=== PATIENT | male | born 1980 | race Caucasian/White ===

== ENCOUNTER 2018-12-18 04:03 | Emergency (ER) | payer MEDICAID ==
[~2018-12-18] VITALS: Ht 193 cm; Wt 95.3 kg
--- NOTE | 2018-12-18 04:15 | NUR ---
ED Nurse Note: Patient walked in to ER c/o left ankle pain, AAO x4, VSS at this time.
[2018-12-18] MEDS ORDERED: IBUPROFEN600 MG ORAL (04:37)
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
[2018-12-18 04:40] VITALS: BP 129/69
--- NOTE | 2018-12-18 04:47 | NUR ---
Patient was discharged prior to reassessment.
--- NOTE | 2018-12-18 04:49 | NUR ---
ED Nurse Note: Pt cleared by health care Provider for discharge. DC instructions/prescription was given and explained to pt and verbalized understanding of teachings. All medical deviecs such as ID band removed. Pt is AAO x4, ambulatory and left with all personal belongings.
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
== END 2018-12-18 04:45 | disposition home or self-care (01) ==
LOC: EMR 04:41
DX: S93.491A Sprain of other ligament of right ankle, initial encounter (principal); W22.8XXA Striking against or struck by other objects, initial encounter; Y92.9 Unspecified place or not applicable
CPT/HCPCS: 73610; Z7502; 99283